=== PATIENT | male | born 1975 | race Caucasian/White ===

== ENCOUNTER → 2018-11-15 | Outpatient (CLI) | payer BC ==
--- NOTE | 2018-11-16 09:46 | PCVCIMAG ---
APPROVED REPORT Study performed: 11/15/2018 14:23:35 Exam: Stress Echocardiogram Indication: Chest pain , Hyperlipidemia Patient Location: Echo lab Stress Nurse: Viviane Deleon RN Status: routine Ht: 5 ft 10 in HR: 67 bpm BP: 112/68 mmHg Rhythm: NSR Procedure The patient underwent an Exercise Stress Test using the Ochoa Protocol. Blood pressure, heart rate, and EKG were monitored. An Echocardiogram was performed by nuclear test technician in four stages in quad fashion. At peak stress, four selected images were obtained and placed side by side with resting images for comparison. Stress Test Details Stress Test: Exercise stress testing was performed using a Ochoa protocol. HR Resting HR: 67 bpmMax Heart Rate (APMHR): 178 bpm Max HR Achieved: 171 bpmTarget HR (85% APMHR): 151 bpm % of APMHR: 96 Recovery HR: 91 bpm HR response to stress: Normal HR response to stress BP Resting BP: 112/68 mmHg Max BP: 140/70 mmHg Recovery BP: 128/70 mmHg BP response to stress: Normal blood pressure response to stress. ECG Resting ECG: Sinus Rhythm Stress ECG: Sinus Rhythm Clinical Reason for Termination: Maximal effort Exercise duration: 10 min 31 sec Highest Stage Achieved: Stage 4: 4.2 mph at 16% grade. Exercise capacity: 13.40 METs Overall Exercise Capacity for Age: Good Stress ECG Conclusion ECG: Non-ischemic Clinical: Non-ischemic Pre-Stress Echo The resting Echocardiogram showed normal left ventricular contractility with an estimated Ejection Fraction of about >55%. Normal wall motion in all segments on baseline images. Post-Stress Echo The stress Echocardiogram showed normal left ventricular contractility with an estimated Ejection Fraction of about 60-65%. Normal augmentation of wall motion in all segments on post stress images. Clinical No clinical or ECG evidence for ischemia. Conclusion Clinical Response: Non-ischemic Exercise Capacity: Good Stress ECG Response: Non-ischemic Stress Echo Images: Non-ischemic The left ventricle is normal in size and wall thickness in both the rest and stress images. 1. low risk study Other Information Study Quality: Good <Conclusion> The left ventricle is normal in size and wall thickness in both the rest and stress images. 1. low risk study
== END | disposition home or self-care (01) ==
LOC: PCVCIMAG 14:12
PROVIDERS: ATTEND Internal Medicine
DX: R07.9 Chest pain, unspecified (principal); E78.5 Hyperlipidemia, unspecified; Z87.898 Personal history of other specified conditions
CPT/HCPCS: 93325; 93351